=== PATIENT | female | born 1950 | race Caucasian/White ===

== ENCOUNTER 2016-03-09 09:48 | Emergency (ER) | payer MEDICARE, OTHER ==
[2016-03-09] MEDS ORDERED: ENOXAPARIN 80 MG/0.8 ML SYRINGE SUBQ STA (15:38)
[2016-03-09] MEDS ORDERED: ENOXAPARIN 80 MG/0.8 ML SYRINGE SUBQ ONE (15:42)
[2016-03-09] MEDS ORDERED: WARFARIN 5 MG TABLET PO STA (16:35)
[2016-03-09] MEDS ORDERED: CEPHALEXIN 250 MG CAPSULE PO STA (17:04)
[2016-03-09] MEDS ORDERED: CEPHALEXIN 250 MG CAPSULE PO ONE (17:14)
== END 2016-03-09 17:22 | disposition home or self-care (01) ==
DX: I82.621 Acute embolism and thrombosis of deep veins of right upper extremity (principal); J06.9 Acute upper respiratory infection, unspecified; C50.919 Malignant neoplasm of unspecified site of unspecified female breast
CPT/HCPCS: 36415; 71020; 80053; 83690; 85025; 87040; 93971; 96372; 99283; 99284; A9270; J1650

== ENCOUNTER 2016-03-13 16:03 | Inpatient (IN) | payer MEDICARE ==
[2016-03-13] MEDS ORDERED: SODIUM CHLORIDE 0.9% 1,000 ML IV ONE (16:33)
[2016-03-13] MEDS ORDERED: VANCOMYCIN INJ 1 GM in SODIUM CHLORIDE 0.9% 250 ML IV STA (19:29)
[2016-03-13] MEDS ORDERED: PIPERACILLIN/TAZOBACTAM 4.5 GM in SODIUM CHLORIDE 0.9% MINIBAG 100 ML IV STA (19:29)
[2016-03-13] MEDS ORDERED: VANCOMYCIN 1 GM VIAL ONE (20:14)
[2016-03-13] MEDS ORDERED: MORPHINE 2 MG/ML SYRINGE IVP PRN (20:58)
[2016-03-13] MEDS ORDERED: SODIUM CHLORIDE FLUSH 0.9% 10 ML SYRINGE IVP PRN (20:58)
[2016-03-13] MEDS ORDERED: ONDANSETRON 4 MG/2 ML VIAL IVP PRN (20:58)
[2016-03-13] MEDS ORDERED: LORazepam 0.5 MG TABLET PO PRN (20:58)
[2016-03-13] MEDS ORDERED: ACETAMINOPHEN 325 MG TABLET PO PRN (20:58)
[2016-03-13] MEDS ORDERED: ZOLPIDEM 5 MG TABLET PO PRN (20:58)
[2016-03-13] MEDS ORDERED: ENOXAPARIN 80 MG/0.8 ML SYRINGE SUBQ SCH (21:00)
[2016-03-13] MEDS ORDERED: WARFARIN 5 MG TABLET PO SCH (21:01)
[2016-03-13] MEDS ORDERED: IOPAMIDOL-300 100 ML VIAL IVP ONE (21:51)
[2016-03-13] MEDS ORDERED: POTASSIUM CHLOR 10 MEQ/100 ML 100 ML IV SCH (22:00)
[2016-03-13] MEDS: SODIUM CHLORIDE 0.9% 1,000 ML IV SCH (22:40)
[2016-03-13] MEDS: ENOXAPARIN 80 MG/0.8 ML SYRINGE SUBQ SCH (22:40)
[2016-03-13] MEDS: guaiFENesin/CODEINE 5 ML UDC PO PRN (22:41)
[2016-03-13] MEDS: SODIUM CHLORIDE FLUSH 0.9% 10 ML SYRINGE IVP SCH (22:41)
[2016-03-14] MEDS: PIPERACILLIN/TAZOBACTAM 4.5 GM in SODIUM CHLORIDE 0.9% MINIBAG 100 ML IV SCH ×4 (02:06→18:47)
[2016-03-14] MEDS: guaiFENesin/CODEINE 5 ML UDC PO PRN ×3 (05:32→17:04)
[2016-03-14] MEDS: SODIUM CHLORIDE FLUSH 0.9% 10 ML SYRINGE IVP SCH ×3 (06:43→21:26)
[2016-03-14] MEDS: PANTOPRAZOLE 40 MG TABLET PO SCH (07:23)
[2016-03-14] MEDS: SODIUM CHLORIDE 0.9% 1,000 ML IV SCH (08:24)
[2016-03-14] MEDS: POLYETHYLENE GLYCOL 3350 17 GM PACKET PO SCH (08:25)
[2016-03-14] MEDS: ENOXAPARIN 80 MG/0.8 ML SYRINGE SUBQ SCH ×2 (08:25→21:25)
[2016-03-14] MEDS ORDERED: VANCOMYCIN PER PHARMACY 1 GM in SODIUM CHLORIDE 0.9% 250 ML IV SCH (09:00)
[2016-03-14] MEDS: VANCOMYCIN INJ 1.25 GM in SODIUM CHLORIDE 0.9% 250 ML IV SCH (12:52)
[2016-03-14] MEDS: WARFARIN 5 MG TABLET PO SCH (14:04)
[2016-03-14] MEDS: BENZONATATE 100 MG CAPSULE PO PRN (21:26)
[2016-03-15] MEDS: VANCOMYCIN INJ 1.25 GM in SODIUM CHLORIDE 0.9% 250 ML IV SCH ×2 (00:35→13:24)
[2016-03-15] MEDS: SODIUM CHLORIDE 0.9% 1,000 ML IV SCH ×3 (00:35→22:13)
[2016-03-15] MEDS: guaiFENesin/CODEINE 5 ML UDC PO PRN ×3 (01:45→22:12)
[2016-03-15] MEDS: PIPERACILLIN/TAZOBACTAM 4.5 GM in SODIUM CHLORIDE 0.9% MINIBAG 100 ML IV SCH ×3 (01:45→20:29)
[2016-03-15] MEDS: SODIUM CHLORIDE FLUSH 0.9% 10 ML SYRINGE IVP SCH ×3 (05:25→22:26)
[2016-03-15] MEDS: PANTOPRAZOLE 40 MG TABLET PO SCH (06:05)
[2016-03-15] MEDS: ENOXAPARIN 80 MG/0.8 ML SYRINGE SUBQ SCH ×2 (09:12→20:30)
[2016-03-15] MEDS: BENZONATATE 100 MG CAPSULE PO PRN (09:12)
[2016-03-15] MEDS: POLYETHYLENE GLYCOL 3350 17 GM PACKET PO SCH (09:12)
[2016-03-15] MEDS: SACCHAROMYCES BOULARDII 250 MG CAPSULE PO SCH ×2 (13:25→16:12)
[2016-03-15] MEDS: WARFARIN 5 MG TABLET PO SCH (13:25)
[2016-03-16] MEDS: VANCOMYCIN INJ 1.25 GM in SODIUM CHLORIDE 0.9% 250 ML IV SCH ×2 (00:57→13:18)
[2016-03-16] MEDS: PIPERACILLIN/TAZOBACTAM 4.5 GM in SODIUM CHLORIDE 0.9% MINIBAG 100 ML IV SCH ×4 (02:32→20:04)
[2016-03-16] MEDS: SODIUM CHLORIDE FLUSH 0.9% 10 ML SYRINGE IVP SCH ×2 (05:17→07:48)
[2016-03-16] MEDS: guaiFENesin/CODEINE 5 ML UDC PO PRN ×3 (06:02→20:04)
[2016-03-16] MEDS: PANTOPRAZOLE 40 MG TABLET PO SCH (06:02)
[2016-03-16] MEDS: SODIUM CHLORIDE 0.9% 1,000 ML IV SCH ×3 (07:26→22:43)
[2016-03-16] MEDS: SACCHAROMYCES BOULARDII 250 MG CAPSULE PO SCH ×2 (07:44→17:37)
[2016-03-16] MEDS: POLYETHYLENE GLYCOL 3350 17 GM PACKET PO SCH (07:44)
[2016-03-16] MEDS: ENOXAPARIN 80 MG/0.8 ML SYRINGE SUBQ SCH ×2 (07:47→20:05)
[2016-03-16] MEDS ORDERED: POTASSIUM CHLORIDE 20 MEQ TABLET PO ONE (09:30)
[2016-03-16] MEDS: WARFARIN 5 MG TABLET PO SCH (13:18)
[2016-03-17] MEDS: VANCOMYCIN INJ 1.25 GM in SODIUM CHLORIDE 0.9% 250 ML IV SCH (00:39)
[2016-03-17] MEDS: PIPERACILLIN/TAZOBACTAM 4.5 GM in SODIUM CHLORIDE 0.9% MINIBAG 100 ML IV SCH ×2 (02:36→07:52)
[2016-03-17] MEDS: PANTOPRAZOLE 40 MG TABLET PO SCH (06:26)
[2016-03-17] MEDS: SODIUM CHLORIDE FLUSH 0.9% 10 ML SYRINGE IVP SCH ×2 (06:27)
[2016-03-17] MEDS: SACCHAROMYCES BOULARDII 250 MG CAPSULE PO SCH (07:53)
[2016-03-17] MEDS: guaiFENesin/CODEINE 5 ML UDC PO PRN (07:57)
[2016-03-17] MEDS: POLYETHYLENE GLYCOL 3350 17 GM PACKET PO SCH (09:11)
[2016-03-17] MEDS: ENOXAPARIN 80 MG/0.8 ML SYRINGE SUBQ SCH (09:11)
== END 2016-03-17 11:02 | disposition home or self-care (01) | DRG 871 ==
DX: A41.9 Sepsis, unspecified organism (principal); R50.9 Fever, unspecified; I82.629 Acute embolism and thrombosis of deep veins of unspecified upper extremity; C50.919 Malignant neoplasm of unspecified site of unspecified female breast; J10.01 Influenza due to other identified influenza virus with the same other identified influenza virus pneumonia; E03.9 Hypothyroidism, unspecified; I82.622 Acute embolism and thrombosis of deep veins of left upper extremity; E87.6 Hypokalemia; C50.412 Malignant neoplasm of upper-outer quadrant of left female breast; Z17.1 Estrogen receptor negative status [ER-]; R63.0 Anorexia; R43.2 Parageusia; Z68.30 Body mass index [BMI] 30.0-30.9, adult; D70.1 Agranulocytosis secondary to cancer chemotherapy; T45.8X5D Adverse effect of other primarily systemic and hematological agents, subsequent encounter; Z79.01 Long term (current) use of anticoagulants; Z79.899 Other long term (current) drug therapy

== ENCOUNTER 2016-03-20 15:02 | Outpatient (CLI) | payer MEDICARE | END 2016-03-20 15:03 | disposition home or self-care (01) | DX: I82.621 Acute embolism and thrombosis of deep veins of right upper extremity (principal); Z79.01 Long term (current) use of anticoagulants ==

== ENCOUNTER 2016-03-23 01:23 | Emergency (ER) | payer MEDICARE ==
[2016-03-23] MEDS ORDERED: KETOROLAC 60 MG/2 ML VIAL IVP STA (02:04)
[2016-03-23] MEDS ORDERED: KETOROLAC 30 MG/ML VIAL ONE (02:37)
[2016-03-23] MEDS ORDERED: metroNIDAZOLE 500 MG/100 ML 100 ML IV ONE (03:19)
[2016-03-23] MEDS ORDERED: metroNIDAZOLE 500 MG/100 ML 100 ML ONE (03:25)
[2016-03-23] MEDS ORDERED: HYDROcod/ACET 5/325 Prepack 6 PO ONE ×2 (04:25→04:26)
== END 2016-03-23 04:42 | disposition home or self-care (01) ==
DX: S30.1XXA Contusion of abdominal wall, initial encounter (principal); X58.XXXA Exposure to other specified factors, initial encounter; K57.32 Diverticulitis of large intestine without perforation or abscess without bleeding; C50.919 Malignant neoplasm of unspecified site of unspecified female breast; Z86.718 Personal history of other venous thrombosis and embolism; Z79.01 Long term (current) use of anticoagulants

== ENCOUNTER 2016-04-09 16:16 | Emergency (ER) | payer MEDICARE ==
[2016-04-09] MEDS ORDERED: AMOX/CLAV 875 MG/125 MG TABLET PO STA (17:43)
[2016-04-09] MEDS ORDERED: AMOX/CLAV 875 MG/125 MG TABLET PO ONE (17:50)
== END 2016-04-09 18:05 | disposition home or self-care (01) ==
DX: J01.90 Acute sinusitis, unspecified (principal); R50.81 Fever presenting with conditions classified elsewhere; C50.919 Malignant neoplasm of unspecified site of unspecified female breast

== ENCOUNTER 2018-07-24 11:00 | Outpatient (CLI) | payer MEDICARE ==
[2018-07-24 11:17] LABS: BASOPHILS # (AUTO) 0.1 10^3/uL (0.0-0.1); BASOPHILS % (AUTO) 0.7 %; EOSINOPHILS # (AUTO) 0.2 10^3/uL (0.0-0.7); EOSINOPHILS % (AUTO) 2.9 %; HGB - HEMOGLOBIN 13.1 g/dL (12.0-16.0); LYMPHOCYTES # (AUTO) 0.8 10^3/uL (1.5-3.5); LYMPHOCYTES % (AUTO) 12.2 %; MEAN CORPUSCULAR HEMOGLOBIN 29.9 pg (27.0-31.0); MEAN CORPUSCULAR HGB CONC 33.2 g/dL (32.0-36.0); MEAN CORPUSCULAR VOLUME 89.9 fL (81.0-99.0); MEAN PLATELET VOLUME 6.7 fL (7.9-10.8); MONOCYTES # (AUTO) 0.7 10^3/uL (0.0-1.0); MONOCYTES % (AUTO) 10.2 %; NEUTROPHILS # (AUTO) 5.2 10^3/uL (1.5-6.6); PLT - PLATELET COUNT 299 10^3/uL (130-450); RED BLOOD COUNT 4.37 10^6/uL (4.20-5.40); RED CELL DISTRIBUTION WIDTH 14.6 % (12.0-15.0)
[2018-07-24 11:36] LABS: CHOLESTEROL 158 mg/dL; HDL CHOLESTEROL 53 mg/dL; LDL CHOLESTEROL,CALCULATED 95 mg/dL; LDL/HDL RATIO 1.8 (<4.4); VLDL CHOLESTEROL 10 mg/dL
[2018-07-24 12:03] LABS: THYROID STIMULATING HORMONE 1.15 uIU/mL (0.34-5.60)
== END 2018-07-24 11:01 | disposition home or self-care (01) ==
LOC: LAB 11:00
PROVIDERS: ATTEND Internal Medicine Geriatric Medicine
DX: Z00.00 Encounter for general adult medical examination without abnormal findings (principal)
CPT/HCPCS: 36415; 80061; 82607; 83721; 84443; 85025

== ENCOUNTER 2019-08-10 08:43 | Outpatient (CLI) | payer MEDICARE ==
[2019-08-10 10:00] LABS: CHOLESTEROL 172 mg/dL; HDL CHOLESTEROL 57 mg/dL
[2019-08-10 10:03] LABS: HB2 TOTAL 14.4 g/dL; HEMOGLOBIN A1C 0.52 g/dL; HEMOGLOBIN A1C % 5.5 % (4.6-6.2)
[2019-08-10 10:07] LABS: FOLATE 19.7 ng/mL (5.90 - >24.8)
[2019-08-14 23:45] LABS: ALBUMIN 3.8 g/dL (3.8-4.8); ALPHA 1 GLOBULIN 0.2 g/dL (0.2-0.3); ALPHA 2 GLOBULIN 0.6 g/dL (0.5-0.9); BETA 1 GLOBULIN 0.4 g/dL (0.4-0.6); BETA 2 GLOBULIN 0.3 g/dL (0.2-0.5); GAMMA GLOBULIN 0.9 g/dL (0.8-1.7)
== END 2019-08-10 08:44 | disposition home or self-care (01) ==
LOC: LAB 08:43
PROVIDERS: ATTEND Internal Medicine Geriatric Medicine
DX: Z00.00 Encounter for general adult medical examination without abnormal findings (principal); E53.8 Deficiency of other specified B group vitamins; G62.9 Polyneuropathy, unspecified; M85.88 Other specified disorders of bone density and structure, other site
CPT/HCPCS: 80061; 82306; 82607; 82746; 83036; 83721; 84155; 84165